=== PATIENT | male | born 1945 | race Caucasian/White ===

== ENCOUNTER 2021-09-07 14:59 | Emergency (ER) | payer OTHER ==
--- NOTE | 2021-09-07 17:24 | RAD REPORT ---
EXAM DESCRIPTION: RAD - Chest Single View - 09/07/2021 5:16 pm CLINICAL HISTORY: altered mental status COMPARISON: Chest Pa And Lat (2 Views) dated 08/16/2020; Chest Pa And Lat (2 Views) dated 10/06/2019; Chest Pa And Lat (2 Views) dated 03/23/2018 FINDINGS: Lines: None. Lungs: Mild diffuse airspace disease. Pleural: No significant pleural effusions or pneumothorax. Cardiac: Cardiomegaly. Sternotomy. Bones: No acute fractures. Other: IMPRESSION: Diffuse increased airspace disease may reflect edema.
[2021-09-07 17:46] LABS: Protime INR 1.03
--- NOTE | 2021-09-07 17:46 | RAD REPORT ---
EXAM DESCRIPTION: CT - Head Brain Wo Cont - 09/07/2021 5:35 pm CLINICAL HISTORY: MENTAL STATUS CHANGE COMPARISON: HEAD BRAIN W O CONTRAST dated 01/03/2009 TECHNIQUE: All CT scans are performed using dose optimization technique as appropriate and may inclu de automated exposure control or mA/KV adjustment according to patient size. FINDINGS: No intracranial hemorrhage, hydrocephalus or extra-axial fluid collection.No areas of brai n edema or evidence of midline shift. The paranasal sinuses and mastoids are clear. The calvarium is intact. IMPRESSION: No acute intracranial abnormality.
[2021-09-07 17:48] LABS: Absolute Lymphocytes (CBC) 1.7 K/uL (0.7-4.9); Basophils % 0.5 % (0-1.3); Hematocrit 40.1 % (39.6-49.0); MPV 7.8 fL (7.6-11.3); RBC Red Blood Cell Count 4.29 M/uL (4.33-5.43)
[2021-09-07 17:59] LABS: Albumin 3.6 g/dL (3.4-5.0); Bilirubin Direct 0.1 mg/dL (0-0.2); Bilirubin Total 0.4 mg/dL (0.2-1.0); Magnesium 1.8 mg/dL (1.8-2.4); Potassium 4.1 mmol/L (3.5-5.1); Protein, Total 7.2 g/dL (6.4-8.2); Troponin (Emerg Dept Use Only) 0.02 ng/mL (0.0-0.045)
[2021-09-07 18:14] LABS: Urine Blood Trace-lysed (Negative); Urine Glucose Negative (Negative); Urine Protein Trace (Negative); Urine Specific Gravity 1.025 (1.005-1.030)
[2021-09-07 19:10] LABS: Urine Bacteria <20 /HPF (NONE SEEN); Urine RBC <5 /HPF (NONE SEEN)
[2021-09-07 19:11] LABS: Urine Mucus 1+ /HPF (NONE SEEN)
--- NOTE | 2021-09-07 20:27 | RAD REPORT ---
EXAM DESCRIPTION: CTAbdomen Pelvis Wo Contrast - 09/07/2021 7:59 pm CLINICAL HISTORY: ABD PAIN COMPARISON: No comparisons TECHNIQUE: CT of the abdomen and pelvis was performed. All CT scans are performed using dose optimization technique as appropriate and may include automated exposure control or mA/KV adjustment according to patient size. FINDINGS: Lower chest: No acute abnormality. Liver: No acute abnormality or suspicious lesions. Biliary: No biliary ductal dilatation. Stomach: No significant focal abnormality. Duodenum: No significant focal abnormality. Pancreas: No significant abnormality. Spleen: No significant abnormality. Adrenal: No suspicious lesions. Kidney/ureter: No hydronephrosis. No renal calculi. Retroperitoneum: No retroperitoneal adenopathy. Vascular: No aneurysm. Atherosclerosis. Bowel: No significant focal abnormality. Peritoneum: No ascites or free air. Small fat containing umbilical hernia Bladder: Grossly unremarkable. Reproductive: No adnexal masses. Bones: No acute fracture. Multilevel degenerative changes are present in the spine. Other: n/a IMPRESSION: No acute intra-abdominal or pelvic finding.
--- NOTE | 2021-09-07 20:47 | ER ---
Nurse's Notes [facility] Name: Giovanni Boudreaux Age: 76 yrs Sex: Male : 1945 Arrival Date: 09/07/2021 Time: 15:03 Bed 16 Private MD: Max Greenwood R Diagnosis: Weakness-general Presentation: 09/07 15:23 Chief complaint: Spouse and/or significant other states: He's forgetful, anxious and jl7 confused x 3 days. Reports dark urine, denies fever. Coronavirus screen: At this time, the client does not indicate any symptoms associated with coronavirus-19. Ebola Screen: No symptoms or risks identified at this time. Initial Sepsis Screen: Does the patient meet any 2 criteria? No. Patient's initial sepsis screen is negative. Does the patient have a suspected source of infection? No. Patient's initial sepsis screen is negative. Risk Assessment: Do you want to hurt yourself or someone else? Patient reports no desire to harm self or others. Onset of symptoms was September 04, 2021. 15:23 Method Of Arrival: Wheelchair 7 15:23 Acuity: KAREN 3 jl7 Triage Assessment: 15:27 General: Appears in no apparent distress. uncomfortable, Behavior is calm, cooperative, jl7 appropriate for age. Pain: Denies pain. Neuro: Level of Consciousness is awake, alert, obeys commands, Oriented to person, place, time. 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 - Social history:: Smoking status: Patient denies any tobacco usage or history of. Screenin:17 Abuse screen: Denies threats or abuse. Nutritional screening: No deficits noted. oh Tuberculosis screening: No symptoms or risk factors identified. Fall Risk Ambulatory Aid- Gait-. Assessment: 19:16 General: Reports per family member pt not having conversations like he use to, thinks oh he may have a uti, AMS. Neuro: Level of Consciousness is awake, alert, obeys commands, Reports. 19:25 Reassessment: Pt insist on walking to the bathroom with a cane and using the walker. Pt dc2 noted to be slightly unsteady using both nut he insist. Pt back to bed , is aox4 answering all questions appropriately but does report feeling some confusion at times. Pt connected to customs broker, bp and pulse ox. Call light within reach. at bedside. 20:00 Reassessment: Patient and/or family updated on plan of care and expected duration. Pain dc2 level reassessed. Patient is alert, oriented x 3, equal unlabored respirations, skin warm/dry/pink. Patient states feeling better. Vital Signs: 15:23 BP 149 / 97; Pulse 95; Resp 17; Temp 98.8; Pulse Ox 96% ; Weight 104.33 kg; jl7 19:25 BP 162 / 90; Pulse 82; Resp 16; Temp 97.89; Pain 4/10; dc2 20:45 BP 159 / 84; Pulse 77; Resp 17; Temp 98.0(O); Pulse Ox 99% ; Pain 0/10; dc2 ED Course: 15:03 Patient arrived in ED. mr 15:04 Max Greenwood MD is Private Physician. mr 15:26 Triage completed. jl7 15:27 Arm band placed on right wrist. jl7 16:35 Azul Howard, SHARON is Primary Nurse. oh 16:55 John Louise PA is PHCP. cp 16:55 Elmo Asher MD is Attending Physician. cp 17:16 XRAY Chest (1 view) In Process Unspecified. EDMS 17:35 CT Head Brain wo Cont In Process Unspecified. EDMS 17:36 COVID-19 (Coronavirus) Document "Date of Onset" if Symptomatic Sent. oh 18:00 Inserted saline lock: 20 gauge in right antecubital area, using aseptic technique. oh Blood collected. 18:07 Urine Microscopic Only Sent. oh 18:07 Urine Microscopic Only Sent. oh 19:17 Bed in low position. Call light in reach. oh 19:[address] via stretcher. dc2 19:59 Abdomen In Process Unspecified. EDMS 20:00 No apparent distress. Resting quietly. dc2 20:06 Patient moved back from CT. dc2 20:10 Awaiting lab results, Awaiting radiology results. dc2 20:46 Grant Huber MD is Referral Physician. cp 20:58 No provider procedures requiring assistance completed. dc2 20:59 IV discontinued, intact, bleeding controlled, No redness/swelling at site. Pressure dc2 dressing applied. Administered Medications: 18:55 Drug: NS 0.9% 250 ml Route: IV; Rate: bolus; Site: right antecubital; oh 20:00 Follow up: IV Status: Completed infusion; IV Intake: 250ml dc2 Intake: 20:00 IV: 250ml; Total: 250ml. dc2 Outcome: 20:46 Discharge ordered by MD. cp 20:58 Discharged to home via wheelchair. dc2 20:58 Condition: good 20:58 Discharge instructions given to Instructed on discharge instructions, follow up and referral plans. Demonstrated understanding of instructions, follow-up care. 21:08 Patient left the ED. dc2 Signatures: Dispatcher [employer] EDMS Flores Anton Corey, J Carlos Schumacher cp RN RN [email or web address] Amina Galvez RN RN wi2 Azul Howard RN RN oh Corrections: (The following items were deleted from the chart) 15:27 15:26 Allergies: No Known Allergies; jlCaterina jl7 19:57 19:49 To radiology for Abdomen Pelvis W Con+CT.RAD.BRZ. dc2 EDSD
--- NOTE | 2021-09-07 20:47 | EDPHYS ---
Physician Documentation [facility] Name: Giovanni Boudreaux Age: 76 yrs Sex: Male : 1945 Arrival Date: 09/07/2021 Time: 15:03 Bed 16 Private MD: Max Greenwood R ED Physician Elmo Asher HPI: 09/07 17:10 This 76 yrs old Male presents to ER via Wheelchair with complaints of cp Confusion. 17:10 The patient presents with confusion, trouble concentrating. Onset: The symptoms/episode cp began/occurred 1 week(s) ago. 17:10 Possible causes: possible uti. Associated signs and symptoms: Pertinent positives: cp abdominal pain, weakness, Pertinent negatives: chest pain, combativeness, diarrhea, headache, fever. Current symptoms: In the emergency department the patient's symptoms are unchanged from the initial presentation, despite home interventions. Patient's baseline: Neuro: alert and fully oriented, Motor: no deficits, Ambulation: walks with assist only, uses walker, Speech: normal. reports concern that patient has been increasingly "confused" over the past week. Seems more agitated. reports patient was seen by DR Greenwood yesterday in clinic and referred to neurologist. reports no appointment with DR Huber until October. concerned about possible uti and that patient seems weak. 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 - Social history:: Smoking status: Patient denies any tobacco usage or history of. ROS: 17:15 Constitutional: Negative for body aches, chills, fever, poor PO intake. cp 17:15 Eyes: Negative for injury, pain, redness, and discharge. cp 17:15 ENT: Negative for ear pain, sore throat, difficulty swallowing, difficulty handling secretions. 17:15 Cardiovascular: Negative for chest pain, edema, palpitations. 17:15 Respiratory: Negative for cough, shortness of breath, wheezing. 17:15 Abdomen/GI: Negative for abdominal pain, nausea, vomiting, and diarrhea, constipation, black/tarry stool, rectal bleeding. 17:15 : Negative for burning with urination, testicular pain 17:15 Skin: Negative for cellulitis, rash. 17:15 Neuro: Positive for altered mental status, weakness, Negative for headache, loss of consciousness, syncope. 17:15 All other systems are negative. Exam: 17:20 Constitutional: The patient appears in no acute distress, alert, awake, cp non-diaphoretic, non-toxic, well developed, well nourished. 17:20 Head/Face: Normocephalic, atraumatic. cp 17:20 Eyes: Periorbital structures: appear normal, Pupils: equal, round, and reactive to light and accomodation, Extraocular movements: intact throughout, Conjunctiva: normal, no exudate, no injection, Sclera: no appreciated abnormality, Lids and lashes: appear normal, bilaterally. 17:20 ENT: External ear(s): are unremarkable, Nose: is normal, Mouth: Lips: moist, Oral mucosa: pink and intact, moist, Posterior pharynx: Airway: no evidence of obstruction, patent. 17:20 Neck: ROM/movement: is normal, is supple, without pain, no range of motions limitations, no meningismus. 17:20 Chest/axilla: Inspection: normal, Palpation: is normal, no crepitus, no tenderness. 17:20 Cardiovascular: Rate: normal, Rhythm: regular, Edema: is not appreciated, JVD: is not appreciated. 17:20 Respiratory: the patient does not display signs of respiratory distress, Respirations: normal, no use of accessory muscles, no retractions, labored breathing, is not present, Breath sounds: are clear throughout, no decreased breath sounds, no stridor, no wheezing. 17:20 Abdomen/GI: Inspection: abdomen appears normal, Bowel sounds: active, all quadrants, Palpation: abdomen is soft and non-tender, in all quadrants, rebound tenderness, is not appreciated. 17:20 Back: pain, is absent, ROM is normal. 17:20 Skin: cellulitis, is not appreciated, no rash present. 17:20 Neuro: Orientation: to person, place, situation, Mentation: able to follow commands, slow to respond, Cerebellar function: Romberg testing is negative, Motor: moves all fours, general weakness with no focal deficits, Sensation: is normal. 18:30 ECG was reviewed by the Attending Physician. cp Vital Signs: 15:23 BP 149 / 97; Pulse 95; Resp 17; Temp 98.8; Pulse Ox 96% ; Weight 104.33 kg; jl7 19:25 BP 162 / 90; Pulse 82; Resp 16; Temp 97.89; Pain 4/10; dc2 20:45 BP 159 / 84; Pulse 77; Resp 17; Temp 98.0(O); Pulse Ox 99% ; Pain 0/10; dc2 MDM: 17:01 Patient medically screened. cp 17:30 Differential Diagnosis: electrolyte abnormality, hypoglycemia, pneumonia, sepsis, UTI, cp volume depletion. 20:45 Data reviewed: vital signs, nurses notes, lab test result(s), EKG, radiologic studies, cp CT scan, plain films. 20:45 Test interpretation: by ED physician or midlevel provider: ECG, plain radiologic cp studies. Counseling: I had a detailed discussion with the patient and/or guardian regarding: the historical points, exam findings, and any diagnostic results supporting the discharge/admit diagnosis, lab results, radiology results, the need for outpatient follow up, a neurologist, to return to the emergency department if symptoms worsen or persist or if there are any questions or concerns that arise at home. Response to treatment: the patient's symptoms have mildly improved after treatment. ED course: VSS. Discussed results of labs, EKG and radiology studies that were negative for acute findings. Discussed observing here in hospital but patient/spouse requests discharge to home for continued monitoring. reports no neuro appointment with DR Huber until October. Will return to ED worsening symptoms. 09/07 17:04 Order name: COVID-19 (Coronavirus) Document "Date of Onset" if Symptomatic cp 09/07 17:04 Order name: Urine Microscopic Only cp 09/07 17:04 Order name: Basic Metabolic Panel cp 09/07 17:04 Order name: CBC with Diff cp 09/07 17:04 Order name: LFT's cp 09/07 17:04 Order name: Magnesium; Complete Time: 18:01 cp 09/07 17:04 Order name: NT PRO-BNP; Complete Time: 18:01 cp 09/07 18:40 Interpretation: NT PRO-BNP 249; Reviewed. cp 09/07 17:04 Order name: PT-INR; Complete Time: 18:01 cp 09/07 17:04 Order name: Troponin (emerg Dept Use Only); Complete Time: 18:01 cp 09/07 17:04 Order name: Procalcitonin; Complete Time: 18:40 cp 09/07 18:40 Interpretation: Reviewed. cp 09/07 17:04 Order name: Lactate; Complete Time: 18:01 cp 09/07 17:04 Order name: Blood Culture Adult (2) cp 09/07 17:05 Order name: Urine Microscopic Only; Complete Time: 19:27 EDMS 09/07 19:27 Interpretation: Normal except: SQEPI 5-10. cp 09/07 17:04 Order name: CT Head Brain wo Cont; Complete Time: 18:01 09/07 17:04 Order name: Cath; Complete Time: 18:08 09/07 17:04 Order name: Urine Dipstick-Ancillary (obtain specimen); Complete Time: 18:07 09/07 17:04 Order name: XRAY Chest (1 view); Complete Time: 18:01 cp 09/07 17:04 Order name: EKG; Complete Time: 17:06 09/07 17:04 Order name: Cardiac monitoring; Complete Time: 17:35 cp 09/07 17:04 Order name: EKG - Nurse/Tech; Complete Time: 18:19 09/07 17:04 Order name: IV Saline Lock; Complete Time: 17:35 09/07 17:05 Order name: Basic Metabolic Panel; Complete Time: 18:01 EDMS 09/07 18:40 Interpretation: CL 110; GFR 63. cp 09/07 17:05 Order name: CBC with Automated Diff; Complete Time: 18:01 EDMS 09/07 18:40 Interpretation: Normal except: RBC 4.29; HGB 13.2; RDW 15.6. cp 09/07 17:05 Order name: Liver (Hepatic) Function; Complete Time: 18:01 EDMS 09/07 18:41 Interpretation: Normal except: GLOB 3.6; A/G 1.0. cp 09/07 17:47 Order name: SARS-COV-2 RT PCR; Complete Time: 18:41 EDMS 09/07 18:14 Order name: Urine Dipstick-Ancillary; Complete Time: 18:40 EDMS 09/07 18:40 Interpretation: Normal except: UBLD Trace-lysed; UPROT Trace. cp 09/07 19:57 Order name: Abdomen ; Complete Time: 20:32 EDMS 09/07 17:04 Order name: Labs collected and sent; Complete Time: 17:35 cp 09/07 17:04 Order name: O2 Per Protocol; Complete Time: 17:35 cp 09/07 17:04 Order name: O2 Sat Monitoring; Complete Time: 17:35 cp EC:30 Rate is 69 beats/min. Rhythm is regular. MA interval is normal. QRS interval is normal. cp QT interval is normal. Interpreted by me. Reviewed by me. Administered Medications: 18:55 Drug: NS 0.9% 250 ml Route: IV; Rate: bolus; Site: right antecubital; oh 20:00 Follow up: IV Status: Completed infusion; IV Intake: 250ml dc2 Disposition: 09/08 12:53 Co-signature as Attending Physician, Elmo Asher MD I agree with the assessment and kdr plan of care. Disposition Summary: 09/07/21 20:46 Discharge Ordered Location: Home cp Problem: new cp Symptoms: are unchanged cp Condition: Stable cp Diagnosis - Weakness - general cp Followup: cp - With: Grant Huber MD - When: 2 - 3 days - Reason: Recheck today's complaints Discharge Instructions: - Discharge Summary Sheet cp - Weakness cp Forms: - Medication Reconciliation Form cp - Thank You Letter cp - Antibiotic Education cp - Prescription Opioid Use cp Signatures: Dispatcher [employer] EDMS Elmo Asher MD MD kdr Page, Corey, PA PA cp J Carlos Sapp RN RN [email or web address] Azul Howard RN RN Amina Castellanos RN dc2 Corrections: (The following items were deleted from the chart) 09/07 15:27 15:26 Allergies: No Known Allergies; winston montero 17:47 17:05 CORONAVIRUS ordered. EDMS EDMS 19:57 19:28 Abdomen Pelvis W Con+CT.RAD.BRZ ordered. EDMS EDMS
[2021-09-07 21:31] VITALS: BP 159/84; TEMP 98; O2SAT 99
--- NOTE | 2021-09-10 09:03 | EKG ---
Test Date: 2021-09-07 Test Time: 18:23:28 Mechanic: MEASUREMENT RESULTS: Intervals: Rate: 69 MS: 174 QRSD: 90 QT: 410 QTc: 439 [place]: P: 54 MS: 174 QRS: 13 T: 44 INTERPRETIVE STATEMENTS: Normal sinus rhythm Normal ECG Compared to ECG 11/11/2004 08:01:00 Sinus tachycardia no longer present Atrial abnormality no longer present ST (T wave) deviation no longer present Electronically Signed On 09-10-21 08:57:55 CDT by Johnson Engle
== END 2021-09-07 21:08 | disposition home or self-care (01) ==
LOC: ER 14:59
DX: R53.1 Weakness (principal); I10 Essential (primary) hypertension; Z20.822 Contact with and (suspected) exposure to COVID-19; Z88.0 Allergy status to penicillin; Z88.8 Allergy status to other drugs, medicaments and biological substances; Z95.1 Presence of aortocoronary bypass graft
CPT/HCPCS: 96365; 93005; 87040 ×2; 85025; 80048; 36415; 83735; 85610; 80076; 83605; 84484; 84145; 83880; 70450; 74176; 71045; 99284; U0003; 81003; 81015